=== PATIENT | female | born 1985 | race Caucasian/White ===

== ENCOUNTER 2017-10-15 22:58 | Emergency (ER) | payer MEDICARE, MEDICAID ==
[~2017-10-15] VITALS: Ht 170.2 cm; Wt 87.9 kg
[~2017-10-15 22:58] MED LIST: ALBU8HFA PO; COROTSUS RIGHT EAR; NO HOME MEDS; PRED50TA PO
[2017-10-15] MEDS ORDERED: methylPREDNISolone sod succ 125mg/2ml vial IV ONE (23:15)
[2017-10-15] MEDS ORDERED: ipratropium/albuterol 3ml nebule NEB ONE (23:15)
[2017-10-15] MEDS ORDERED: LORazepam 2 mg/ml vial IV ONE (23:20)
[2017-10-16] MEDS ORDERED: PRED10TA23 PO (00:08)
[2017-10-16] MEDS ORDERED: ALBU8.5H8 IH (00:08)
[2017-10-16 00:31] VITALS: BP 131/88
== END 2017-10-16 00:35 | disposition home or self-care (01) ==
LOC: ER 22:58
DX: J45.901 Unspecified asthma with (acute) exacerbation (principal); F41.9 Anxiety disorder, unspecified; F15.10 Other stimulant abuse, uncomplicated; Z79.899 Other long term (current) drug therapy
CPT/HCPCS: 71045; 94640; 94760; 96374; 96375; 99284; J2060; J2930